=== PATIENT | male | born 1990 ===

== ENCOUNTER 2017-10-10 13:36 | Emergency (ER) | payer SELFPAY ==
[2017-10-10 15:27] VITALS: BP 141/81
--- NOTE | 2017-10-10 15:35 | UC ---
FLU HPI - HPI Summary HPI Summary: 27 y/o male presents to the urgent care c/o headache, body aches, chills, since yesterday,. Pt reports his was Dx with the flu about 4 days ago. Pt denies any flu shot this year. Pt took Tylenol PO yesterday to alleviate symptoms. His REA is 6/10. Pt has decrease appetite, but is drinking fluid. Pt denies SOB, chest pain, abdominal pain, N/V/D - History of Current Complaint Chief Complaint: UCGeneralIllness Stated Complaint: HEADACHE FATIGUE COUGH CONGESTION Time Seen by Provider: 10/10/17 15:34 Hx Obtained From: Patient Onset/Duration: Gradual Onset, Lasting Days - 1 day, Still Present Severity Currently: Moderate Severity Initially: Mild Pain Intensity: 6 Pain Scale Used: 0-10 Numeric Associated Signs & Symptoms: Positive: Fever, Myalgia, Cough, Sore Throat, Headache - Risk Factors Influenza Risk Factors: Negative - Allergy/Home Medications Allergies/Adverse Reactions: Allergies Allergy/AdvReac Type Severity Reaction Status Date / Time No Known Allergies Allergy Verified 10/10/17 15:26 PMH/Surg Hx/FS Hx/Imm Hx Previously Healthy: Yes - Pt denies PMHX - Surgical History Surgical History: None - Family History Known Family History: Positive: Diabetes - Social History Occupation: Employed Full-time Lives: With Family Alcohol Use: None Substance Use Type: None Smoking Status (MU): Heavy Every Day Tobacco Smoker Review of Systems Constitutional: Fever, Chills, Other - body aches Skin: Negative Eyes: Negative ENT: Sore Throat, Nasal Discharge, Sinus Congestion Respiratory: Cough Cardiovascular: Negative Gastrointestinal: Negative Genitourinary: Negative Motor: Negative Neurovascular: Negative Musculoskeletal: Negative Neurological: Headache Psychological: Negative Is Patient Immunocompromised?: No All Other Systems Reviewed And Are Negative: Yes Physical Exam Triage Information Reviewed: Yes Vital Signs: Initial Vital Signs Temp 101.4 F 10/10/17 15:22 Pulse 94 10/10/17 15:22 Resp 16 10/10/17 15:22 BP 141/81 10/10/17 15:22 Pulse Ox 100 10/10/17 15:22 - Additional Comments VITAL SIGNS: Reviewed. GENERAL: Patient is a well developed and nourished male who is sitting comfortable in the examining table. Patient is not in any acute respiratory distress. HEAD AND FACE: No signs of trauma. No ecchymosis, hematomas or skull depressions. No sinus tenderness. edematous erythematous nasal mucosa with yellowish discharge, EYES: PERRLA, EOMI x 2, No injected conjunctiva, clear watery eyes, no nystagmus. No photophobia. EARS: Hearing grossly intact. Ear canals and tympanic membranes are within normal limits. MOUTH: Positive pharynx with erythema, no exudates,no palatal petechiae. no B/ L tonsillar enlargement Uvula in midline. NECK: Supple, trachea is midline, Positive anterior cervical lymphadenopathy, no JVD, no carotid bruit, no c-spine tenderness, neck with full ROM. No meningeal signs, no Kernig's or brudzinskis signs. CHEST: Symmetric, no tenderness at palpation LUNGS: Clear to auscultation bilaterally. No wheezing or crackles. CVS: Regular rate and rhythm, S1 and S2 present, no murmurs or gallops appreciated. ABDOMEN: Soft, non-tender. No signs of distention. No rebound no guarding, and no masses palpated. Bowel sounds are normal. EXTREMITIES: FROM in all major joints, no edema, no cyanosis or clubbing. NEURO: Alert and oriented x 3. No acute neurological deficits. Speech is normal and follows commands. SKIN: Dry and warm Flu Course/Dx - Course Course Of Treatment: 27 y/o male presents to the urgent care c/o headache, body aches, chills, since yesterday,. Pt reports his was Dx with the flu about 4 days ago. Pt denies any flu shot this year. Pt took Tylenol PO yesterday to alleviate symptoms. His REA is 6/10. Pt has decrease appetite, but is drinking fluid. Pt denies SOB, chest pain, abdominal pain, N/V/D. Hx obtained. Pt with URI on examination. Probably influenza. However shortage of Influenza test. Pt given Ibuprofen Po at the clinic for fever. Pt tolerated well medication. Pt Rx Tamiflu and ibuprofen PO to alleviates symptoms. Advised on hand washing and wear a mask to avoid spreading. Pt advised to rest, increase fluid intake, eat well and avoid strenuous exercise. If symptoms do not improve or worsen advised to return to the urgent care or f/u with her PCP for further evaluation and treatment. Pt's BP is elevated today advised to decrease salt in diet, monitor BP and f/u with PCP for further management.Pt understood and agreed with plan of care. - Differential Dx/Diagnosis Differential Diagnosis/HQI/PQRI: Bronchitis, Influenza, Upper Respiratory Infection Provider Diagnoses: 1- Influenza. 2-Fever. 3-Elevated BP w/o Hx of HTN Discharge - Discharge Plan Condition: Stable Disposition: HOME Prescriptions: Ibuprofen TAB* [Motrin TAB* 800 MG] 800 mg PO Q6H PRN #20 tab PRN Reason: Fever Oseltamivir CAP* [Tamiflu CAP*] 75 mg PO BID #10 cap Patient Education Materials: Influenza (ED), Low-Sodium Diet (ED) Forms: *Work Release Referrals: [facility] [Outside] - 3 Days Additional Instructions: 1- Please take the full course of the antiviral to avoid resistance. Encourage hand washing and wear a mask to avoid spreading. 2-Please continue taking Ibuprofen PO q6-8hrs prn as instructed after meals to alleviate fever, and sore throat. Increase fluid intake, eat well, rest and avoid strenuous exercise 3-If symptoms do not improve or worsen please return to the urgent care or f/u with your PCP in 2 days for further evaluation and treatment. 4-Your BP is elevated today. please decrease salt in your diet, monitor BP and if it continues to be elevated please f/u with your PCP for further management
[2017-10-10] MEDS ORDERED: Ibuprofen TAB* 400 MG PO ONE (15:36)
== END 2017-10-10 16:15 | disposition home or self-care (01) ==
LOC: UCCORT 13:36
DX: J11.1 Influenza due to unidentified influenza virus with other respiratory manifestations (principal); R50.9 Fever, unspecified; R03.0 Elevated blood-pressure reading, without diagnosis of hypertension; F17.210 Nicotine dependence, cigarettes, uncomplicated
CPT/HCPCS: 99202; A9270-GY; G0463

== ENCOUNTER 2018-06-16 14:43 | Emergency (ER) | payer OTHER ==
--- NOTE | 2018-06-16 15:26 | ED ---
Back Pain - HPI Summary HPI Summary: Patient is a 28 y/o M w/ c/o lower back pain/bilateral flank pain onsetting yesterday. Pain has gradually worsened since onset. He denies any trauma. Similar episodes of pain are reported, but he notes that these episodes are typically intermittent and last shorter than the current episode of pain. Pain is always at the same location and is described as burning. Patient also reports an incident of dizziness and feeling near syncope yesterday. N/V, abnormal bowel movements and SOB is denied. On triage, pain is rated 2/10, nothing is noted to aggravate/alleviate Sx. Home medications and allergies are reviewed. PMHx is denied, FMHx of lupus is mother and sister. - History of Current Complaint Chief Complaint: EDFlankPain Stated Complaint: FLANK PAIN Time Seen by Provider: 06/16/18 14:46 Hx Obtained From: Patient Onset/Duration: Lasting Days - onset yesterday, Still Present, Worse Since Onset/Duration: Started Days Ago - onset yesterday, Still Present Timing: Constant, Lasting Days - onset yesterday Back Pain Location: Is Discrete @ - lower back/flanks bilaterally Severity Initially: Mild Severity Currently: Mild - 2/10 Pain Intensity: 2 Pain Scale Used: 0-10 Numeric - 2/10 Character: Burning Aggravating Symptom(s): Nothing Alleviating Symptom(s): Nothing Associated Signs And Symptoms: Positive: Flank Pain - bilateral, Other - lower back pain. Negative: Bowel Incontinence - Allergies/Home Medications Allergies/Adverse Reactions: Allergies Allergy/AdvReac Type Severity Reaction Status Date / Time No Known Allergies Allergy Verified 06/16/18 14:57 Home Medications: Home Medications NK [No Home Medications Reported] 06/16/18 [History Confirmed 06/16/18] PMH/Surg Hx/FS Hx/Imm Hx Sensory History: Denies: Hx Legally Blind, Hx Deafness Opthamlomology History: Denies: Hx Legally Blind EENT History: Denies: Hx Deafness Infectious Disease History: No Infectious Disease History: Denies: Traveled Outside the [place] in Last 30 Days - Family History Known Family History: Positive: Diabetes, Other - mother and sister w/ lupus - Social History Alcohol Use: Rare Substance Use Type: Reports: None Smoking Status (MU): Light Every Day Tobacco Smoker Review of Systems Negative: Shortness Of Breath Positive: Other - NEGATIVE: abnormal bowel movement . Negative: Vomiting, Nausea Positive: flank pain - bilateral Positive: Other - POSITIVE: lower back pain All Other Systems Reviewed And Are Negative: Yes Physical Exam - Summary Physical Exam Summary: Appearance: The patient is well-nourished in no acute distress and in no acute pain. Skin: The skin is warm and dry and skin color reflects adequate perfusion. HEENT: The head is normocephalic and atraumatic. The pupils are equal and reactive. The conjunctivae are clear and without drainage. Nares are patent and without drainage. Mouth reveals moist mucous membranes and the throat is without erythema and exudate. The external ears are intact. The ear canals are patent and without drainage. The tympanic membranes are intact. Neck: The neck is supple with full range of motion and non-tender. There are no carotid bruits. There is no neck vein distension. Respiratory: Chest is non-tender. Lungs are clear to auscultation and breath sounds are symmetrical and equal. Cardiovascular: Heart is regular rate and rhythm. There is no murmur or rub auscultated. There is no peripheral edema and pulses are symmetrical and equal. Abdomen: The abdomen is soft and non-tender. There are normal bowel sounds heard in all four quadrants and there is no organomegaly palpated. Musculoskeletal: There is no back tenderness noted. Extremities are non-tender with full range of motion. There is good capillary refill. There is no peripheral edema or calf tenderness elicited. Neurological: Patient is alert and oriented to person, place and time. The patient has symmetrical motor strength in all four extremities. Cranial nerves are grossly intact. Deep tendon reflexes are symmetrical and equal in all four extremities. Psychiatric: The patient has an appropriate affect and does not exhibit any anxiety or depression. Triage Information Reviewed: Yes Vital Signs On Initial Exam: Initial Vitals Pulse Pulse Ox 89 98 06/16/18 14:51 06/16/18 14:51 Vital Signs Reviewed: Yes Diagnostics - Vital Signs Vital Signs Temp Pulse Resp BP Pulse Ox 06/16/18 14:52 99.2 F 84 18 143/84 99 06/16/18 14:51 89 98 - Laboratory Result Diagrams: 06/16/18 15:54 06/16/18 15:54 Lab Statement: Any lab studies that have been ordered have been reviewed, and results considered in the medical decision making process. Re-Evaluation - Re-Evaluation First Eval Re-Evaluation Time: 17:58 Comment: Discussed results of labs with patient. He will be discharged to home and is advised to follow up with PCP in 1-2 days. Back Pain Course/Dx - Course Course Of Treatment: Mr. Rivera's lab workup was within normal limits and it' s my impression that he is suffering from some musculoskeletal pain. His exam is consistent with that. I recommended symptomatic treatment and follow-up if not improved. - Diagnoses Provider Diagnoses: Lower back pain Discharge - Sign-Out/Discharge Documenting (check all that apply): Patient Departure - discharge - Discharge Plan Condition: Stable Disposition: HOME Patient Education Materials: Back Pain (ED) Referrals: [facility] [Outside] - 2 Days Additional Instructions: RETURN TO ED FOR ANY NEW OR WORSENING SYMPTOMS. FOLLOW UP WITH PRIMARY CARE PHYSICIAN IN 1-2 DAYS. - Billing Disposition and Condition Condition: STABLE Disposition: Home - Attestation Statements Document Initiated by Scribe: Yes Documenting Scribe: Yimi Pacheco Provider For Whom Aldo is Documenting (Include Credential): Marin Valdez MD Scribe Attestation: Yimi Ralph , scribed for Marin Valdez MD on 06/16/18 at 2122. Scribe Documentation Reviewed: Yes Provider Attestation: The documentation as recorded by the Yimi gonsales accurately reflects the service I personally performed and the decisions made by me, Marin Valdez MD
[2018-06-16 16:08] LABS: ABS Basophils 0 10^3/ul (0-0.2); ABS Eosinophils 0.1 10^3/ul (0-0.6); ABS Lymphocytes 1.6 10^3/ul (1.0-4.8); ABS Monocytes 0.9 10^3/ul (0-0.8); ABS Neutrophils 9.7 10^3/ul (1.5-7.7); ABS Nucleated RBC 0 10^3/ul; Eosinophil % 1.1 % (0-6); Hematocrit 47 % (42-52); Hemoglobin 16.2 g/dl (14.0-18.0); Lymphocyte % 13.1 % (25-47); Mean Corpuscular HGB Conc 35 g/dl (31-36); Mean Corpuscular Hemoglobin 30 pg (27-31); Mean Corpuscular Volume 87 fL (80-94); Mean Platelet Volume 7.1 um3 (7.4-10.4); Nucleated Red Blood Cells % 0.2; Platelet Count 342 10^3/ul (150-450); Red Blood Count 5.34 10^6/ul (4.00-5.40); Red Cell Distribution Width 13 % (10.5-15); White Blood Count 12.4 10^3/ul (3.5-10.8)
[2018-06-16 16:14] LABS: Urine Appearance Clear; Urine Blood Negative (Negative); Urine Color Straw; Urine Ketones Trace (Negative); Urine Protein Negative (Negative); Urine Red Blood Cell Trace(0-2/hpf) (Absent); Urine Specific Gravity 1.001 (1.010-1.030); Urine Urobilinogen Negative (Negative); Urine White Blood Cell Trace(0-5/hpf) (Absent)
[2018-06-16 16:34] LABS: EGFR Non-African American 103.7 (>60)
[2018-06-16 18:53] VITALS: BP 0/0
== END 2018-06-16 18:50 | disposition home or self-care (01) ==
LOC: ED 14:43
DX: M54.5 Low back pain (principal); Z72.0 Tobacco use
CPT/HCPCS: 36415; 80053; 81003; 81015; 85025; 87086; 99282